=== PATIENT | female | born 1975 | race Caucasian/White ===

== ENCOUNTER 2019-11-28 14:30 | Day surgery (SDC) | payer OTHER ==
[~2019-11-28] VITALS: Ht 160 cm; Wt 85.4 kg
[~2019-11-28 14:30] MED LIST: BUPIVACAINE/PF-EPI 0.5% 1:200K ONE; LIDOCAINE 1%-EPI 1:100K, 20ML ONE; None at this Time
[2019-11-28] MEDS ORDERED: LACTATED RINGERS 1,000 ML IV SCH (14:37)
[2019-11-28 14:50] VITALS: BP 133/85
[2019-11-28] MEDS ORDERED: CHLORHEXIDINE 15 ML UDC MM ONE (15:00)
[2019-11-28 15:08] LABS: HCG UR SG 1.028 (1.003-1.030)
[2019-11-28] MEDS ORDERED: FENTANYL PF 100 MCG/2ML ONE ×2 (15:19→15:49)
[2019-11-28] MEDS ORDERED: MIDAZOLAM 1 MG/ML, 2ML ONE (15:19)
[2019-11-28] MEDS ORDERED: KETOROLAC 30 MG/1 ML ONE (15:33)
[2019-11-28] MEDS ORDERED: PROPOFOL 10 MG/ML, 20ML ONE (15:58)
[2019-11-28] MEDS ORDERED: DEXAMETHASONE 4 MG/ML, 1ML ONE (15:58)
[2019-11-28] MEDS ORDERED: CEFAZOLIN 1,000 MG ONE (15:58)
[2019-11-28] MEDS ORDERED: SUCCINYLCHOLINE 20 MG/ML, 10ML ONE (15:58)
[2019-11-28] MEDS ORDERED: ROCURONIUM 10MG/ML,5ML ONE (15:58)
[2019-11-28] MEDS ORDERED: NEOSTIGMINE 1 MG/ML, 10ML ONE (15:58)
[2019-11-28] MEDS ORDERED: ONDANSETRON 2MG/ML, 2ML ONE (15:58)
[2019-11-28] MEDS ORDERED: GLYCOPYRROLATE 0.2MG/1ML, 5ML ONE (15:58)
[2019-11-28] MEDS ORDERED: OXYcodone 5 MG/5 ML ORAL.SOL UDC ONE (16:18)
[2019-11-28] MEDS ORDERED: ACETAMINOPHEN 325 MG TABLET PO PRN (16:30)
[2019-11-28] MEDS ORDERED: PROMETHAZINE 25 MG/ML, 1ML IV PRN (16:30)
[2019-11-28] MEDS ORDERED: HYDROmorphone 2 MG/ML, 1ML IVPush PRN (16:30)
[2019-11-28] MEDS ORDERED: OXYcodone 5 MG/5 ML ORAL.SOL UDC PO PRN (16:30)
[2019-11-28] MEDS ORDERED: ALBUTEROL SULFATE 2.5 MG/3 ML NPPB PRN (16:30)
[2019-11-28] MEDS ORDERED: LABETALOL 5MG/ML, 20ML IV PRN (16:30)
[2019-11-28] MEDS ORDERED: FENTANYL PF 100 MCG/2ML IV PRN (16:30)
[2019-11-28] MEDS ORDERED: MEPERIDINE/PF 25MG/0.5ML IVPush PRN (16:30)
[2019-11-28] MEDS ORDERED: DIAZEPAM 5 MG/ML, 2ML IVPush PRN (16:30)
[2019-11-28] MEDS ORDERED: hydrALAzine 20 MG/ML, 1ML IV PRN (16:30)
== END 2019-11-28 18:30 | disposition home or self-care (01) ==
LOC: OR 14:30
PROVIDERS: ATTEND Orthopaedic Surgery
DX: S83.232A Complex tear of medial meniscus, current injury, left knee, initial encounter (principal); Z11.59 Encounter for screening for other viral diseases; M22.42 Chondromalacia patellae, left knee; M19.90 Unspecified osteoarthritis, unspecified site; Z88.1 Allergy status to other antibiotic agents; Z82.49 Family history of ischemic heart disease and other diseases of the circulatory system; X58.XXXA Exposure to other specified factors, initial encounter; Y93.89 Activity, other specified; Y92.89 Other specified places as the place of occurrence of the external cause; Y99.8 Other external cause status
CPT/HCPCS: 29881; 81025; J0690; J1100; J1885; J2250; J2405; J2704; J3010; J3490; J7120; U0001; J2710; J0330